=== PATIENT | male | born 1990 ===

== ENCOUNTER 2021-07-03 18:16 | Emergency (ER) | payer SELFPAY ==
[2021-07-03 20:41] VITALS: BP 147/87
--- NOTE | 2021-07-03 23:19 | Ultrasound Report ---
US extremity nonvascular LT INDICATION / CLINICAL INFORMATION: DISCOLORATION. COMPARISON: None available. FINDINGS/IMPRESSION: Ultrasound imaging over the area of palpable concern demonstrates a complex lesion with heterogeneous echotexture which demonstrates no internal vascularity. This lesion measures approximately 5.6 x 1.7 x 5.0 cm. This is nonspecific and may represent a hematoma versus abscess. Signer Name: Garrett Baltazar DO Signed: 07/03/2021 11:14 PM Workstation Name: [id number]
--- NOTE | 2021-07-04 03:13 | Emergency Department Report ---
ED Lower Extremity HPI - General Chief Complaint: Extremity Injury, Upper Stated Complaint: LUMP IN LEFT THIGH Time Seen by Provider: 07/04/21 03:05 Source: patient Mode of arrival: Ambulatory Limitations: No Limitations - History of Present Illness Initial Comments: 30-year-old mark presents emerged department complaining of pain to the left upper thigh after being struck in left eye by piece of plywood. States that initially the area was red-purple and swollen and then resolved he said over last 10 days he is noticing redness swelling tenderness and warmth and fever. Reports no nausea, no vomiting MD Complaint: leg injury -: Gradual Injury: Thigh: Left Type of Injury: blunt Place: work Severity: mild, moderate Improves With: nothing Worsens With: weight bearing, movement, palpation Context: direct blow Associated Symptoms: able to partially bear weight - Related Data Previous Rx's Medication Instructions Recorded Last Taken Type Ketorolac [Toradol] 10 mg PO Q6H PRN #15 tablet 07/04/21 Unknown Rx Sulfamethoxazole/Trimethoprim 1 each PO BID #20 tablet 07/04/21 Unknown Rx [Bactrim Ds] Allergies Allergy/AdvReac Type Severity Reaction Status Date / Time No Known Allergies Allergy Unverified 07/03/21 20:55 ED Review of Systems ROS: Stated complaint: LUMP IN LEFT THIGH Other details as noted in HPI Comment: All other systems reviewed and negative ED Past Medical Hx - Past Medical History Previous Medical History?: No - Surgical History Past Surgical History?: No - Medications Home Medications: Home Medications Medication Instructions Recorded Confirmed Last Taken Type Ketorolac [Toradol] 10 mg PO Q6H PRN #15 tablet 07/04/21 Unknown Rx Sulfamethoxazole/Trimethoprim 1 each PO BID #20 tablet 07/04/21 Unknown Rx [Bactrim Ds] ED Physical Exam - General Limitations: No Limitations General appearance: alert, in no apparent distress - Head Head exam: Present: atraumatic, normocephalic - Eye Eye exam: Present: normal appearance, PERRL, EOMI - ENT ENT exam: Present: mucous membranes moist - Neck Neck exam: Present: normal inspection - Respiratory Respiratory exam: Present: normal lung sounds bilaterally, wheezes, rales. Absent: respiratory distress, rhonchi - Cardiovascular Cardiovascular Exam: Present: regular rate, normal rhythm. Absent: systolic murmur, diastolic murmur, rubs, gallop - GI/Abdominal GI/Abdominal exam: Present: soft, normal bowel sounds - Rectal Rectal exam: Present: deferred - Extremities Exam Extremities exam: Present: normal inspection - Back Exam Back exam: Present: normal inspection - Neurological Exam Neurological exam: Present: alert, oriented X3 - Psychiatric Psychiatric exam: Present: normal affect, normal mood - Skin Skin exam: Present: warm, dry, intact, normal color. Absent: rash ED Course Vital Signs 07/03/21 20:40 Temperature 98.2 F Pulse Rate 68 Respiratory 14 Rate Blood Pressure 147/87 O2 Sat by Pulse 98 Oximetry Critical care attestation.: If time is entered above; I have spent that time in minutes in the direct care of this critically ill patient, excluding procedure time. ED Disposition Clinical Impression: Cellulitis of thigh, Abscess Disposition: 01 HOME / SELF CARE / HOMELESS Is pt being admited?: No Does the pt Need Aspirin: No Condition: Stable Instructions: Cellulitis, Adult, Skin Abscess, [id number] Additional Instructions: Please take medication as prescribed be sure to follow-up with primary care provider in 2 to 3 days to reevaluate the area of cellulitis Referrals: JOSE MORGAN MD [Primary Care Provider] - 3-5 Days [facility] [Provider Group] - 3-5 Days
== END 2021-07-04 03:48 | disposition home or self-care (01) ==
LOC: ED 18:16
DX: L02.416 Cutaneous abscess of left lower limb (principal); L03.116 Cellulitis of left lower limb; Z79.899 Other long term (current) drug therapy
CPT/HCPCS: 99283